=== PATIENT | male | born 1970 | race Caucasian/White ===

== ENCOUNTER 2017-10-09 15:34 | Emergency (ER) | payer MEDICAID, OTHER ==
[~2017-10-09] VITALS: Ht 162.6 cm; Wt 90.0 kg
[~2017-10-09 15:34] MED LIST: ADV50250 INH; CLON-527 PO; LEVO500T2 PO; PRED10TA PO
[2017-10-09 15:57] VITALS: BP 154/110
[2017-10-09] MEDS ORDERED: ALBU8HFA PO (17:43)
[2017-10-09] MEDS ORDERED: CLON-527 PO (17:43)
== END 2017-10-09 17:49 | disposition home or self-care (01) ==
LOC: ER 15:34
DX: J45.909 Unspecified asthma, uncomplicated (principal); Z76.0 Encounter for issue of repeat prescription
CPT/HCPCS: 99281; 99283

== ENCOUNTER 2017-10-16 08:47 | Emergency (ER) | payer MEDICAID, OTHER ==
[~2017-10-16] VITALS: Ht 162.6 cm; Wt 90.0 kg
[~2017-10-16 08:47] MED LIST changes: +ALBU8HFA PO; -LEVO500T2 PO
[2017-10-16 08:49] VITALS: BP 146/91
[2017-10-16] MEDS ORDERED: ADV50250 INH (09:30)
[2017-10-16] MEDS ORDERED: CLON-527 PO (09:30)
[2017-10-16] MEDS ORDERED: PRED20TA PO (09:30)
[2017-10-16] MEDS ORDERED: ALBU18HF2 INH (09:30)
== END 2017-10-16 09:35 | disposition home or self-care (01) ==
LOC: ER 08:47
DX: F41.9 Anxiety disorder, unspecified (principal); J45.909 Unspecified asthma, uncomplicated; F43.10 Post-traumatic stress disorder, unspecified; Z88.2 Allergy status to sulfonamides; Z79.899 Other long term (current) drug therapy; X58.XXXA Exposure to other specified factors, initial encounter; Y93.89 Activity, other specified; Y92.89 Other specified places as the place of occurrence of the external cause; Y99.8 Other external cause status
CPT/HCPCS: 99283; 99284

== ENCOUNTER 2017-10-22 10:46 | Emergency (ER) | payer MEDICAID, OTHER ==
[~2017-10-22] VITALS: Ht 162.6 cm; Wt 94.0 kg
[~2017-10-22 10:46] MED LIST changes: +ALBU18HF2 INH; +PRED20TA PO
[2017-10-22 10:49] VITALS: BP 156/99
[2017-10-22] MEDS ORDERED: PRED10TA23 PO (11:15)
== END 2017-10-22 12:07 | disposition home or self-care (01) ==
LOC: ER 10:46
DX: Z76.0 Encounter for issue of repeat prescription (principal); J45.909 Unspecified asthma, uncomplicated; Z79.899 Other long term (current) drug therapy; Z88.2 Allergy status to sulfonamides; Z91.011 Allergy to milk products
CPT/HCPCS: 99283; 99285